=== PATIENT | male | born 1990 | race Caucasian/White ===

== ENCOUNTER 2017-02-05 10:03 | Emergency (ER) | payer OTHER ==
[~2017-02-05] VITALS: Wt 77.0 kg
[2017-02-05] MEDS ORDERED: KETOROLAC 60 MG INJ IM STA (12:34)
[2017-02-05] MEDS ORDERED: TRIMETHOPRIM/SULFAMETHOX (DS) TAB PO ONE (13:00)
[2017-02-05] MEDS ORDERED: HYDROCODONE/APAP (5/325) TAB PO ONE (13:00)
[2017-02-05] MEDS ORDERED: CEPHALEXIN 500 MG CAP PO ONE (13:00)
--- NOTE | 2017-02-05 13:29 | RADRPT ---
PROCEDURE: XR Left foot. CLINICAL INDICATION: Left foot pain and swelling, no trauma TECHNIQUE: Three views of the left foot were obtained. COMPARISON: No prior studies are available for comparison. FINDINGS: There is no acute fracture or dislocation. Alignment is normal. Joint spaces are preserved. There is mild diffuse soft tissue swelling. IMPRESSION: 1. No radiographic evidence of acute osseous abnormality. 2. Mild diffuse soft tissue swelling. RPTAT: UU .Santhosh Salcido MD, MD Date Time Electronically viewed and signed by .Santhosh Salcido MD, MD on 02/05/2017 13:29 .K/
[2017-02-05] MEDS ORDERED: NAPR-688 PO (13:32)
[2017-02-05] MEDS ORDERED: HYDR-906 PO (13:32)
[2017-02-05] MEDS ORDERED: SULF1TAB31 PO (13:32)
[2017-02-05] MEDS ORDERED: CEPH-443 PO (13:32)
--- NOTE | 2017-02-05 13:39 | ERD ---
ER Documentation Chief Complaint Chief Complaint LEFT FOOT SWELLING AND PAIN X 3 DAYS HPI This 26-year-old male presents for redness and pain with some swelling to his left foot on the lateral side for the last 3 days. He was previously locked up in [facility] where he was wearing shoes that he thinks did not fit him. He does not remember any specific trauma wonders if he somehow sprained his ankle. No fever or chills. ROS All systems reviewed and are negative except as per history of present illness. Medications Home Meds Active Scripts Hydrocodone/Acetaminophen ([place] 5-325 Tablet) 1 Each Tablet, 1 EACH PO Q6 for SEVERE PAIN LEVEL 7-10, #10 TAB Prov:KARAN HART DO 02/05/17 Naproxen* (Naproxen*) 500 Mg Tablet, 500 MG PO BID Y for PAIN, #20 TAB Prov:KARAN HART DO 02/05/17 Cephalexin* (Keflex*) 500 Mg Capsule, 500 MG PO QID for 10 Days, CAP Prov:KARAN HART DO 02/05/17 Sulfamethoxazole/Trimethoprim* (Bactrim Ds* Tablet) 1 Each Tablet, 1 TAB PO BID , #20 TAB Prov:KARAN HART DO 02/05/17 PMhx/Soc History of Surgery: No Anesthesia Reaction: No Hx Neurological Disorder: No Hx Respiratory Disorders: No Hx Cardiac Disorders: No Hx Psychiatric Problems: No Hx Miscellaneous Medical Probl: No Hx Alcohol Use: No Hx Substance Use: No Hx Tobacco Use: No Physical Exam Vitals Vital Signs Date Time Temp Pulse Resp B/P Pulse Ox O2 Delivery O2 Flow Rate FiO2 02/05/17 10:07 98.1 78 18 148/79 99 Physical Exam Const: [] Mild distress Head: Atraumatic Eyes: Normal Conjunctiva ENT: Normal External Ears, Nose and Mouth. Neck: Full range of motion..~ No meningismus. Resp: Clear to auscultation bilaterally Cardio: Regular rate and rhythm, no murmurs Abd: Soft, non tender, non distended. Normal bowel sounds Skin: No petechiae or rashes Back: No midline or flank tenderness Ext: No cyanosis. Left lateral foot with approximately 7 x 5 cm of erythema with positive calor extending from the lateral heel area where the patient has a mild abrasion. This area is also tender but I palpate no deformities or specific bone tenderness. Distal pulses intact. Neur: Awake and alert and oriented 3 Psych: Normal Mood and Affect Results 24 hrs Current Medications Medications (Trade) Dose Ordered Sig/Bandar Route PRN Reason Start Time Stop Time Status Last Admin Dose Admin Ketorolac Tromethamine (Toradol) 60 mg ONCE STAT IM 02/05/17 12:34 02/05/17 12:37 DC 02/05/17 12:49 Trimethoprim/ Sulfamethoxazole (Bactrim (Ds)) 2 tab ONCE ONCE PO 02/05/17 13:00 02/05/17 13:01 DC 02/05/17 12:49 Cephalexin (Keflex) 500 mg ONCE ONCE PO 02/05/17 13:00 02/05/17 13:01 DC 02/05/17 12:49 Acetaminophen/ Hydrocodone Bitart ([place] (5/325)) 1 tab ONCE ONCE PO 02/05/17 13:00 02/05/17 13:01 DC 02/05/17 12:49 Procedures/MDM Foot cellulitis is localized. Patient was given 2 Bactrim DS tablets and a Keflex as well as Toradol 60 mg IM and a [place] pill. Requested crutches because of the pain is increased when he walks on it. No signs of fracture. Going to discharge him with Bactrim and Keflex as well as return precautions if it continues to spread. He has no medical problems including diabetes or any other immune suppression. Discharging with naproxen and a few [place] for severe pain as well. Primary care follow-up in 2-3 days X-ray left foot interpretation: See some soft tissue swelling in the lateral side without evidence of fracture dislocation. Departure Diagnosis: Primary Impression: Cellulitis of foot without toes, left Condition: Stable Patient Instructions: Cellulitis Referrals: COMMUNITY CLINICS YOU HAVE RECEIVED A MEDICAL SCREENING EXAM AND THE RESULTS INDICATE THAT YOU DO NOT HAVE A CONDITION THAT REQUIRES URGENT TREATMENT IN THE EMERGENCY DEPARTMENT. FURTHER EVALUATION AND TREATMENT OF YOUR CONDITION CAN WAIT UNTIL YOU ARE SEEN IN YOUR DOCTORS OFFICE WITHIN THE NEXT 1-2 DAYS. IT IS YOUR RESPONSIBILITY TO MAKE AN APPOINTMENT FOR FOLOW-UP CARE. IF YOU HAVE A PRIMARY DOCTOR --you should call your primary doctor and schedule an appointment IF YOU DO NOT HAVE A PRIMARY DOCTOR YOU CAN CALL OUR PHYSICIAN REFERRAL HOTLINE AT IF YOU CAN NOT AFFORD TO SEE A PHYSICIAN YOU CAN CHOSE FROM THE FOLLOWING [facility] [address] [facility] [address] [facility] [address] [facility] [address] [facility] [facility] [address] [facility]. [facility] [address] Additional Instructions: Call your primary care doctor TOMORROW for an appointment during the next 2-3 days.See the doctor sooner or return here if your condition worsens before your appointment time. KARAN HART DO Feb 05, 2017 13:39
--- NOTE | 2017-02-05 13:39 | ERD ---
ER Documentation Chief Complaint Chief Complaint LEFT FOOT SWELLING AND PAIN X 3 DAYS HPI This 26-year-old male presents for redness and pain with some swelling to his left foot on the lateral side for the last 3 days. He was previously locked up in [facility] where he was wearing shoes that he thinks did not fit him. He does not remember any specific trauma wonders if he somehow sprained his ankle. No fever or chills. ROS All systems reviewed and are negative except as per history of present illness. Medications Home Meds Active Scripts Hydrocodone/Acetaminophen ([place] 5-325 Tablet) 1 Each Tablet, 1 EACH PO Q6 for SEVERE PAIN LEVEL 7-10, #10 TAB Prov:KARAN HART DO 02/05/17 Naproxen* (Naproxen*) 500 Mg Tablet, 500 MG PO BID Y for PAIN, #20 TAB Prov:KARAN HART DO 02/05/17 Cephalexin* (Keflex*) 500 Mg Capsule, 500 MG PO QID for 10 Days, CAP Prov:KARAN HART DO 02/05/17 Sulfamethoxazole/Trimethoprim* (Bactrim Ds* Tablet) 1 Each Tablet, 1 TAB PO BID , #20 TAB Prov:KARAN HART DO 02/05/17 PMhx/Soc History of Surgery: No Anesthesia Reaction: No Hx Neurological Disorder: No Hx Respiratory Disorders: No Hx Cardiac Disorders: No Hx Psychiatric Problems: No Hx Miscellaneous Medical Probl: No Hx Alcohol Use: No Hx Substance Use: No Hx Tobacco Use: No Physical Exam Vitals Vital Signs Date Time Temp Pulse Resp B/P Pulse Ox O2 Delivery O2 Flow Rate FiO2 02/05/17 10:07 98.1 78 18 148/79 99 Physical Exam Const: [] Mild distress Head: Atraumatic Eyes: Normal Conjunctiva ENT: Normal External Ears, Nose and Mouth. Neck: Full range of motion..~ No meningismus. Resp: Clear to auscultation bilaterally Cardio: Regular rate and rhythm, no murmurs Abd: Soft, non tender, non distended. Normal bowel sounds Skin: No petechiae or rashes Back: No midline or flank tenderness Ext: No cyanosis. Left lateral foot with approximately 7 x 5 cm of erythema with positive calor extending from the lateral heel area where the patient has a mild abrasion. This area is also tender but I palpate no deformities or specific bone tenderness. Distal pulses intact. Neur: Awake and alert and oriented 3 Psych: Normal Mood and Affect Results 24 hrs Current Medications Medications (Trade) Dose Ordered Sig/Bandar Route PRN Reason Start Time Stop Time Status Last Admin Dose Admin Ketorolac Tromethamine (Toradol) 60 mg ONCE STAT IM 02/05/17 12:34 02/05/17 12:37 DC 02/05/17 12:49 Trimethoprim/ Sulfamethoxazole (Bactrim (Ds)) 2 tab ONCE ONCE PO 02/05/17 13:00 02/05/17 13:01 DC 02/05/17 12:49 Cephalexin (Keflex) 500 mg ONCE ONCE PO 02/05/17 13:00 02/05/17 13:01 DC 02/05/17 12:49 Acetaminophen/ Hydrocodone Bitart ([place] (5/325)) 1 tab ONCE ONCE PO 02/05/17 13:00 02/05/17 13:01 DC 02/05/17 12:49 Procedures/MDM Foot cellulitis is localized. Patient was given 2 Bactrim DS tablets and a Keflex as well as Toradol 60 mg IM and a [place] pill. Requested crutches because of the pain is increased when he walks on it. No signs of fracture. Going to discharge him with Bactrim and Keflex as well as return precautions if it continues to spread. He has no medical problems including diabetes or any other immune suppression. Discharging with naproxen and a few [place] for severe pain as well. Primary care follow-up in 2-3 days X-ray left foot interpretation: See some soft tissue swelling in the lateral side without evidence of fracture dislocation. Departure Diagnosis: Primary Impression: Cellulitis of foot without toes, left Condition: Stable Patient Instructions: Cellulitis Referrals: COMMUNITY CLINICS YOU HAVE RECEIVED A MEDICAL SCREENING EXAM AND THE RESULTS INDICATE THAT YOU DO NOT HAVE A CONDITION THAT REQUIRES URGENT TREATMENT IN THE EMERGENCY DEPARTMENT. FURTHER EVALUATION AND TREATMENT OF YOUR CONDITION CAN WAIT UNTIL YOU ARE SEEN IN YOUR DOCTORS OFFICE WITHIN THE NEXT 1-2 DAYS. IT IS YOUR RESPONSIBILITY TO MAKE AN APPOINTMENT FOR FOLOW-UP CARE. IF YOU HAVE A PRIMARY DOCTOR --you should call your primary doctor and schedule an appointment IF YOU DO NOT HAVE A PRIMARY DOCTOR YOU CAN CALL OUR PHYSICIAN REFERRAL HOTLINE AT IF YOU CAN NOT AFFORD TO SEE A PHYSICIAN YOU CAN CHOSE FROM THE FOLLOWING [facility] [address] [facility] [address] [facility] [address] [facility] [address] [facility] [facility] [address] [facility]. [facility] [address] Additional Instructions: Call your primary care doctor TOMORROW for an appointment during the next 2-3 days.See the doctor sooner or return here if your condition worsens before your appointment time. KARAN HART DO Feb 05, 2017 13:39
--- NOTE | 2017-02-05 13:39 | ERD ---
ER Documentation Chief Complaint Chief Complaint LEFT FOOT SWELLING AND PAIN X 3 DAYS HPI This 26-year-old male presents for redness and pain with some swelling to his left foot on the lateral side for the last 3 days. He was previously locked up in [facility] where he was wearing shoes that he thinks did not fit him. He does not remember any specific trauma wonders if he somehow sprained his ankle. No fever or chills. ROS All systems reviewed and are negative except as per history of present illness. Medications Home Meds Active Scripts Hydrocodone/Acetaminophen ([place] 5-325 Tablet) 1 Each Tablet, 1 EACH PO Q6 for SEVERE PAIN LEVEL 7-10, #10 TAB Prov:KARAN HART DO 02/05/17 Naproxen* (Naproxen*) 500 Mg Tablet, 500 MG PO BID Y for PAIN, #20 TAB Prov:KARAN HART DO 02/05/17 Cephalexin* (Keflex*) 500 Mg Capsule, 500 MG PO QID for 10 Days, CAP Prov:KARAN HART DO 02/05/17 Sulfamethoxazole/Trimethoprim* (Bactrim Ds* Tablet) 1 Each Tablet, 1 TAB PO BID , #20 TAB Prov:KARAN HART DO 02/05/17 PMhx/Soc History of Surgery: No Anesthesia Reaction: No Hx Neurological Disorder: No Hx Respiratory Disorders: No Hx Cardiac Disorders: No Hx Psychiatric Problems: No Hx Miscellaneous Medical Probl: No Hx Alcohol Use: No Hx Substance Use: No Hx Tobacco Use: No Physical Exam Vitals Vital Signs Date Time Temp Pulse Resp B/P Pulse Ox O2 Delivery O2 Flow Rate FiO2 02/05/17 10:07 98.1 78 18 148/79 99 Physical Exam Const: [] Mild distress Head: Atraumatic Eyes: Normal Conjunctiva ENT: Normal External Ears, Nose and Mouth. Neck: Full range of motion..~ No meningismus. Resp: Clear to auscultation bilaterally Cardio: Regular rate and rhythm, no murmurs Abd: Soft, non tender, non distended. Normal bowel sounds Skin: No petechiae or rashes Back: No midline or flank tenderness Ext: No cyanosis. Left lateral foot with approximately 7 x 5 cm of erythema with positive calor extending from the lateral heel area where the patient has a mild abrasion. This area is also tender but I palpate no deformities or specific bone tenderness. Distal pulses intact. Neur: Awake and alert and oriented 3 Psych: Normal Mood and Affect Results 24 hrs Current Medications Medications (Trade) Dose Ordered Sig/Bandar Route PRN Reason Start Time Stop Time Status Last Admin Dose Admin Ketorolac Tromethamine (Toradol) 60 mg ONCE STAT IM 02/05/17 12:34 02/05/17 12:37 DC 02/05/17 12:49 Trimethoprim/ Sulfamethoxazole (Bactrim (Ds)) 2 tab ONCE ONCE PO 02/05/17 13:00 02/05/17 13:01 DC 02/05/17 12:49 Cephalexin (Keflex) 500 mg ONCE ONCE PO 02/05/17 13:00 02/05/17 13:01 DC 02/05/17 12:49 Acetaminophen/ Hydrocodone Bitart ([place] (5/325)) 1 tab ONCE ONCE PO 02/05/17 13:00 02/05/17 13:01 DC 02/05/17 12:49 Procedures/MDM Foot cellulitis is localized. Patient was given 2 Bactrim DS tablets and a Keflex as well as Toradol 60 mg IM and a [place] pill. Requested crutches because of the pain is increased when he walks on it. No signs of fracture. Going to discharge him with Bactrim and Keflex as well as return precautions if it continues to spread. He has no medical problems including diabetes or any other immune suppression. Discharging with naproxen and a few [place] for severe pain as well. Primary care follow-up in 2-3 days X-ray left foot interpretation: See some soft tissue swelling in the lateral side without evidence of fracture dislocation. Departure Diagnosis: Primary Impression: Cellulitis of foot without toes, left Condition: Stable Patient Instructions: Cellulitis Referrals: COMMUNITY CLINICS YOU HAVE RECEIVED A MEDICAL SCREENING EXAM AND THE RESULTS INDICATE THAT YOU DO NOT HAVE A CONDITION THAT REQUIRES URGENT TREATMENT IN THE EMERGENCY DEPARTMENT. FURTHER EVALUATION AND TREATMENT OF YOUR CONDITION CAN WAIT UNTIL YOU ARE SEEN IN YOUR DOCTORS OFFICE WITHIN THE NEXT 1-2 DAYS. IT IS YOUR RESPONSIBILITY TO MAKE AN APPOINTMENT FOR FOLOW-UP CARE. IF YOU HAVE A PRIMARY DOCTOR --you should call your primary doctor and schedule an appointment IF YOU DO NOT HAVE A PRIMARY DOCTOR YOU CAN CALL OUR PHYSICIAN REFERRAL HOTLINE AT IF YOU CAN NOT AFFORD TO SEE A PHYSICIAN YOU CAN CHOSE FROM THE FOLLOWING [facility] [address] [facility] [address] [facility] [address] [facility] [address] [facility] [facility] [address] [facility]. [facility] [address] Additional Instructions: Call your primary care doctor TOMORROW for an appointment during the next 2-3 days.See the doctor sooner or return here if your condition worsens before your appointment time. KARAN HART DO Feb 05, 2017 13:39
[2017-02-05] MEDS ORDERED: DIPHTH/TET/ACEL PERTUSS (ADULT) 0.5 ML VIAL IM* ONE (14:00)
== END 2017-02-05 13:47 | disposition home or self-care (01) ==
LOC: E/R 10:03
DX: L03.116 Cellulitis of left lower limb (principal)
CPT/HCPCS: 73630; 96372; J1885; Z7502; Z7610

== ENCOUNTER 2017-03-21 23:44 | Emergency (ER) | payer OTHER ==
[~2017-03-21] VITALS: Ht 167.6 cm; Wt 66.3 kg
[~2017-03-21 23:44] MED LIST: CEPH-443 PO; HYDR-906 PO; NAPR-688 PO; SULF1TAB31 PO
[2017-03-21 23:47] VITALS: Ht 167.6 cm; Wt 66.3 kg
[2017-03-22] MEDS ORDERED: SOD CHLORIDE 0.9% 1,000 ML IV STA (02:16)
[2017-03-22] MEDS ORDERED: morphine 4 MG/ML VIAL IV STA (02:16)
[2017-03-22] MEDS ORDERED: ONDANSETRON 4 MG INJ IV STA (02:16)
--- NOTE | 2017-03-22 02:16 | ERD ---
ER Documentation Chief Complaint Chief Complaint R index finger infection, did poultry picker abx, pt cut into nail today HPI This 26 year old male patient presents tp ED for re-evaluation of a right hand middle finger infection, pt is a poor historian, finger is edematous and discolored. state he was seen at another hospital and dx with infection, given a prescription for ABX with he did not fill, pt used a razor to drain the finger doday, now his pain is above 10,loss sensation in fingers is only able to slightly move finger, ROS All systems reviewed and are negative except as per history of present illness. Medications Home Meds Active Scripts Hydrocodone/Acetaminophen ([place] 5-325 Tablet) 1 Each Tablet, 1 EACH PO Q6 for SEVERE PAIN LEVEL 7-10, #10 TAB Prov:KARAN HART DO 02/05/17 Naproxen* (Naproxen*) 500 Mg Tablet, 500 MG PO BID Y for PAIN, #20 TAB Prov:KARAN HART DO 02/05/17 Cephalexin* (Keflex*) 500 Mg Capsule, 500 MG PO QID for 10 Days, CAP Prov:KARAN HART DO 02/05/17 Sulfamethoxazole/Trimethoprim* (Bactrim Ds* Tablet) 1 Each Tablet, 1 TAB PO BID , #20 TAB Prov:KARAN HART DO 02/05/17 Allergies Allergies: Coded Allergies: No Known Allergy (Unverified , 03/22/17) PMhx/Soc History of Surgery: No Anesthesia Reaction: No Hx Neurological Disorder: No Hx Respiratory Disorders: No Hx Cardiac Disorders: No Hx Psychiatric Problems: No Hx Miscellaneous Medical Probl: No Hx Alcohol Use: No Hx Substance Use: No Hx Tobacco Use: No Smoking Status: Never smoker Physical Exam Vitals Vital Signs Date Time Temp Pulse Resp B/P Pulse Ox O2 Delivery O2 Flow Rate FiO2 03/22/17 06:05 99.4 93 19 163/103 100 Room Air 03/21/17 23:47 99.4 124 20 141/86 97 VSS triage notes reviewed Physical Exam Const: Head: Atraumatic Eyes: Normal Conjunctiva ENT: Normal External Ears, Nose and Mouth. Neck: Full range of motion..~ No meningismus. Resp: Clear to auscultation bilaterally Cardio: Regular rate and rhythm, no murmurs Abd: Soft, non tender, non distended. Normal bowel sounds Skin: Back: No midline or flank tenderness Ext: No cyanosis, or edema Neur: Awake and alert Psych: Normal Mood and Affect Result Diagram: 03/22/17 0240 03/22/17 0240 Results 24 hrs Laboratory Tests Test 03/22/17 02:40 White Blood Count 22.510^3/ul Red Blood Count 5.2110^6/ul Hemoglobin 16.3g/dl Hematocrit 46.0% Mean Corpuscular Volume 88.3fl Mean Corpuscular Hemoglobin 31.3pg Mean Corpuscular Hemoglobin Concent 35.4g/dl Red Cell Distribution Width 11.8% Platelet Count 31188^3/UL Mean Platelet Volume 10.8fl Neutrophils % 86.7% Lymphocytes % 6.5% Monocytes % 5.5% Eosinophils % 0.1% Basophils % 0.2% Nucleated Red Blood Cells % 0.0/100WBC Neutrophils # 19.510^3/ul Lymphocytes # 1.510^3/ul Monocytes # 1.210^3/ul Eosinophils # 0.010^3/ul Basophils # 0.110^3/ul Nucleated Red Blood Cells # 0.010^3/ul Sodium Level 141mmol/L Potassium Level 4.2mmol/L Chloride Level 100mmol/L Carbon Dioxide Level 26mmol/L Anion Gap 19 Blood Urea Nitrogen 10mg/dl Creatinine 0.84mg/dl Glucose Level 120mg/dl Calcium Level 9.8mg/dl Total Bilirubin 1.5mg/dl Direct Bilirubin 0.00mg/dl Indirect Bilirubin 1.5mg/dl Aspartate Amino Transf (AST/SGOT) 24IU/L Alanine Aminotransferase (ALT/SGPT) 27IU/L Alkaline Phosphatase 129IU/L Total Protein 8.6g/dl Albumin 4.4g/dl Globulin 4.20g/dl Albumin/Globulin Ratio 1.04 Current Medications Medications (Trade) Dose Ordered Sig/Bandar Route PRN Reason Start Time Stop Time Status Last Admin Dose Admin Sodium Chloride (NS) 1,000 ml @ 1,000 mls/hr Q1H STAT IV 03/22/17 02:16 03/22/17 03:15 DC 03/22/17 03:14 Morphine Sulfate (morphine) 4 mg ONCE STAT IV 03/22/17 02:16 03/22/17 02:21 DC 03/22/17 02:52 Ondansetron HCl 4 mg 4 mg ONCE STAT IV 03/22/17 02:16 03/22/17 02:21 DC 03/22/17 02:50 Clindamycin HCl/ Dextrose (Cleocin 900 Mg/ D5W (Pmx)) 50 ml @ 50 mls/hr ONCE IVPB 03/22/17 02:30 03/22/17 03:29 DC 03/22/17 02:53 Diphtheria/ Tetanus/Acell Pertussis (Adacel) 0.5 ml ONCE ONCE IM* 03/22/17 02:30 03/22/17 02:31 DC 03/22/17 02:50 Hydromorphone HCl (Dilaudid) 1 mg ONCE STAT IV 03/22/17 03:50 03/22/17 03:51 DC 03/22/17 03:59 Hydromorphone HCl (Dilaudid) 1 mg ONCE STAT IV 03/22/17 06:12 03/22/17 06:13 DC 03/22/17 06:16 Interpretation text CBC shows no evidence of hemorrhage, WBCs are 22.5 suggestive of infection Chemistry shows no evidence of significant electrolyte abnormalities or renal insufficiency Liver function tests shows no evidence of acute biliary or hepatic dysfunction Lipase shows no evidence of acute pancreatitis Procedures/MDM PROCEDURE: XR Hand. CLINICAL INDICATION: Infection TECHNIQUE: AP, oblique and lateral views of the right hand were obtained, 4 images. COMPARISON: No prior studies are available for comparison. FINDINGS: There is normal mineralization. No acute fracture, dislocation, or osseous lesion is seen. The joint spaces are normal. There is marked soft tissue swelling of the third finger. IMPRESSION: Third finger soft tissue swelling. No acute osseous abnormality. Physician Ladonna Date Time Electronically viewed and signed by Physician Ladonna on 03/22/2017 03: 08 This 26-year-old male patient presents to emergency department for evaluation of right hand third digit infection. 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 Patient reports he did not get the antibiotics but decided to do his own incision and drainage with a razor blade. Patient reports that he tried to squeeze the tip of his finger it caused excruciating pain radiating down his hand and he has little sensation in his fingers, decreased range of motion, finger is edematous, with multiple colors, stab wound noted is not oozing emergency room course includes full evaluation, his temperature is under 100, plan to get diagnostic labs, start IV antibiotics and fluids. Patient was given a liter of normal saline, 900 mg of clindamycin, 4 mg of morphine, pain was sub-effectively treated with morphine patient request additional pain medication 60 minutes later 1 mg of Dilaudid given which has effectively treated patient's medication pain for several hours. Patient's serology returns with an elevated white count of 22.5 this case discussed with supervising physician Dr Louis has high suspicion for flexor tendon synovitis, patient transferred to Main ED, plan to transfer patient to hand specialist facility. All care turned over to Dr Louis at this time. Departure Diagnosis: Primary Impression: Synovitis of finger JUDITH SAMUEL Mar 22, 2017 02:16
[2017-03-22] MEDS ORDERED: DIPHTH/TET/ACEL PERTUSS (ADULT) 0.5 ML VIAL IM* ONE (02:30)
[2017-03-22] MEDS ORDERED: CLINDAMYCIN 900 MG/D5W (PMX) 50 ML IVPB SCH (02:30)
--- NOTE | 2017-03-22 03:09 | RADRPT ---
PROCEDURE: XR Hand. CLINICAL INDICATION: Infection TECHNIQUE: AP, oblique and lateral views of the right hand were obtained, 4 images. COMPARISON: No prior studies are available for comparison. FINDINGS: There is normal mineralization. No acute fracture, dislocation, or osseous lesion is seen. The joint spaces are normal. There is marked soft tissue swelling of the third finger. IMPRESSION: Third finger soft tissue swelling. No acute osseous abnormality. Physician Ladonna Date Time Electronically viewed and signed by Physician Ladonna on 03/22/2017 03:08 KIKI/
[2017-03-22] MEDS ORDERED: HYDROmorphONE 1 MG/ML SYG IV STA ×3 (03:50→08:55)
[2017-03-22 04:26] LABS: BASOPHIL # 0.1 10^3/ul (0.0-0.1); BASOPHILS % 0.2 % (0.0-2.0); EOSINOPHILS % 0.1 % (0.0-7.0); HEMOGLOBIN 16.3 g/dl (14.0-18.0); LYMPHOCYTES # 1.5 10^3/ul (0.8-2.9); LYMPHOCYTES % 6.5 % (15.0-51.0); MEAN CORPUSCULAR HEMOGLOBIN 31.3 pg (29.0-33.0); MEAN CORPUSCULAR HGB CONC 35.4 g/dl (32.0-37.0); MEAN CORPUSCULAR VOLUME 88.3 fl (82.0-101.0); MEAN PLATELET VOLUME 10.8 fl (7.4-10.4); MONOCYTE # 1.2 10^3/ul (0.3-0.9); MONOCYTES % 5.5 % (0.0-11.0); NEUTROPHIL # 19.5 10^3/ul (1.6-7.5); NEUTROPHILS % 86.7 % (39.0-77.0); PLATELET COUNT 456 10^3/UL (140-415); RED BLOOD COUNT 5.21 10^6/ul (4.70-6.10); RED CELL DISTRIBUTION WIDTH 11.8 % (11.5-14.5); WHITE BLOOD COUNT 22.5 10^3/ul (4.8-10.8)
[2017-03-22 04:37] LABS: ALBUMIN 4.4 g/dl (3.3-4.9); ALBUMIN/GLOBULIN RATIO 1.04; BILIRUBIN,INDIRECT 1.5 mg/dl (0-1.1); BILIRUBIN,TOTAL 1.5 mg/dl (0.2-1.3); CALCIUM 9.8 mg/dl (8.4-10.2); CREATININE 0.84 mg/dl (0.61-1.24); POTASSIUM 4.2 mmol/L (3.5-5.1); TOTAL PROTEIN 8.6 g/dl (6.1-8.1)
--- NOTE | 2017-03-22 06:58 | QN ---
Documentation Comment My independent concise history is right third finger pain and swelling. My pertinent physical exam findings are sausage digit of the right third finger with pain with touch or any passive range of motion. The plan is IV antibiotics with clindamycin and transferred to [facility] for higher level of care as we do not have hand surgery available at [facility].. THUAN MAJOR MD Mar 22, 2017 06:58
[2017-03-22 09:22] VITALS: BP 158/109; PULSE 97; RESP 20; TEMP 98.2
== END 2017-03-22 18:37 | disposition short-term general hospital (02) ==
LOC: FTE 23:44 → E/R 03-22 18:37
DX: M65.841 Other synovitis and tenosynovitis, right hand (principal); R40.2142 Coma scale, eyes open, spontaneous, at arrival to emergency department; R40.2252 Coma scale, best verbal response, oriented, at arrival to emergency department; R40.2362 Coma scale, best motor response, obeys commands, at arrival to emergency department
CPT/HCPCS: 36415; 73130; 80053; 85025; 90471; 90715; 96374; 96375; 96376; J1170; J2270; J2405; J7030; Z7502; Z7610